=== PATIENT | male | born 1950 | race Caucasian/White ===

== ENCOUNTER → 2020-08-09 | Outpatient (CLI) | payer OTHER ==
[~2020-08-09] MED LIST: PROVENTIL0.09 MG/AC IH; ZITHROMAX Z PA250 MG PO
== END | disposition home or self-care (01) ==
LOC: COVID19 16:28
PROVIDERS: ATTEND Family Medicine
DX: Z20.828 Contact with and (suspected) exposure to other viral communicable diseases (principal)